=== PATIENT | female | born 1995 | race American Indian/Alaskan Native ===

== ENCOUNTER 2017-11-05 00:38 | Inpatient (IN) | payer OTHER ==
[2017-11-05] MEDS ORDERED: XYLOCAINE 2% INFILTRATI ONE (01:46)
[2017-11-05] MEDS ORDERED: MINERAL OIL PO PRN (01:46)
[2017-11-05] MEDS ORDERED: BRETHINE IVP PRN (01:46)
[2017-11-05] MEDS ORDERED: STADOL IV PRN (01:46)
[2017-11-05] MEDS ORDERED: BRETHINE SUB-Q PRN (01:46)
[2017-11-05] MEDS ORDERED: NARCAN 0.4 MG/1 ML IV PRN ×3 (01:46→21:57)
[2017-11-05] MEDS ORDERED: ePHEDrine SULFATE IV PRN ×2 (01:46→11:09)
[2017-11-05] MEDS ORDERED: PITOCin/NS 20 UNIT/1000ML DRIP 20 UNITS/1,000 ML BAG IV SCH ×3 (02:00→22:00)
[2017-11-05] MEDS ORDERED: PITOCin/NS 30 UNIT/500ML 30 UNITS/500 ML BAG IV SCH (02:00)
[2017-11-05 02:13] LABS: Hematocrit 28.9 % (30.3-42.9); Hemoglobin 9.4 gm/dl (10.1-14.3); Mean Corpuscular HGB Conc 33 % (30-34); Mean Corpuscular Volume 75 fl (79-97); Platelet Count 264 K/mm3 (140-440); Red Blood Count 3.85 M/mm3 (3.65-5.03)
[2017-11-05] MEDS: SUBLIMAZE IV PRN ×2 (02:13→06:37)
[2017-11-05 02:14] LABS: Mean Corpuscular Hemoglobin 25 pg (28-32); Red Cell Distribution Width 20.3 % (13.2-15.2)
[2017-11-05] MEDS: ZOFRAN IV PRN ×2 (02:17→16:26)
[2017-11-05] MEDS: LACTATED RINGERS 1,000 ML IV SCH ×2 (07:56→16:26)
--- NOTE | 2017-11-05 07:58 | History and Physical Report ---
History of Present Illness Date of examination: 11/05/17 Date of admission: 11/05/17 01:34 History of present illness: 22 yo LMP EDC 10/31/17 @ 40.5 weeks gestation, presented to triage with reported SROM-meconium fluid. Pitocin ordered. Patient first trimester entry into care. course uncomplicated. GBS negative. Past History Past Medical History: no pertinent history Past Surgical History: no surgical history Social history: no significant social history, single - Obstetrical History Expected Date of Delivery: 10/31/17 Actual Gestation: 40 Week(s) 5 Day(s) : 1 Medications and Allergies Allergies Allergy/AdvReac Type Severity Reaction Status Date / Time No Known Allergies Allergy Unverified 11/05/17 01:01 Home Medications Medication Instructions Recorded Confirmed Last Taken Type Ondansetron [Zofran TAB] 11/05/17 11/04/17 17:00 History Active Meds: Active Medications Butorphanol Tartrate (Stadol) 2 mg IV Q2H PRN PRN Reason: Pain , Severe (7-10) Last Admin: 11/05/17 04:16 Dose: 2 mg Ephedrine Sulfate (Ephedrine Sulfate) 10 mg IV Q2M PRN PRN Reason: Hypotension Fentanyl (Sublimaze) 100 mcg IV Q2H PRN PRN Reason: Labor Pain Last Admin: 11/05/17 06:37 Dose: 100 mcg Lactated Ringer's (Lactated Ringers) 1,000 mls @ 125 mls/hr IV DIRECT NATANAEL Oxytocin/Sodium Chloride (Pitocin/Ns 20 Unit/1000ml Drip) 20 units in 1,000 mls @ 125 mls/hr IV DIRECT NATANAEL Oxytocin/Sodium Chloride (Pitocin/Ns 30 Unit/500ml) 30 units in 500 mls @ 4 mls /hr IV TITR NATANAEL; Protocol Last Admin: 11/05/17 02:36 Dose: 4 ml/hr, 4 mls/hr Mineral Oil (Mineral Oil) 30 ml PO QHS PRN PRN Reason: Constipation Naloxone HCl (Narcan 0.4 Mg/1 Ml) 0.1 mg IV Q2MIN PRN PRN Reason: Res Rate </= 8 or 02 SAT < 92% Ondansetron HCl (Zofran) 4 mg IV Q8H PRN PRN Reason: Nausea And Vomiting Last Admin: 11/05/17 02:17 Dose: 4 mg Terbutaline Sulfate (Brethine) 0.25 mg SUB-Q ONCE PRN PRN Reason: Hyperstimulation/Hypertonicity Terbutaline Sulfate (Brethine) 0.25 mg IVP ONCE PRN PRN Reason: Hyperstimulation/Hypertonicity Review of Systems All systems: negative Genitourinary: vaginal discharge, leakage of fluid, contractions - Vital Signs Vital signs: Vital Signs Temp BP 98.6 F 129/61 11/05/17 00:50 11/05/17 00:50 Temp Pulse Resp BP Pulse Ox 98.0 F 65 18 152/81 93 11/05/17 02:29 11/05/17 07:45 11/05/17 06:37 11/05/17 07:45 11/05/17 07:08 - Obstetrical FHR: category 1 Uterine Contraction Monitor Mode: External Cervical Dilatation: 2 Cervical Effacement Percentage: 90 station: -1 Uterine Contraction Frequency (min): 2-8 Uterine Contraction Duration: 60 Uterine Contraction Pattern: Regular Uterine Tone Measurement Phase: Resting Uterine Contraction Intensity: Moderate Results Result Diagrams: 11/05/17 01:15 Abnormal lab results 11/05/17 Range/Units 01:15 WBC 14.1 H (4.5-11.0) K/mm3 Hgb 9.4 L (10.1-14.3) gm/dl Hct 28.9 L (30.3-42.9) % MCV 75 L (79-97) fl MCH 25 L (28-32) pg RDW 20.3 H (13.2-15.2) % All other labs normal. Assessment and Plan A: IUP @ 40.5 weeks gestation PPROM at term Anemia GBS negative Latent Labor Pain P: Epidural Active Pitocin
[2017-11-05] MEDS ORDERED: BICITRA ONE (09:47)
[2017-11-05] MEDS ORDERED: NARCAN 2 MG/2 ML IV PRN (11:09)
--- NOTE | 2017-11-05 11:09 | Anesthesia Consultation ---
Anesthesia Consult and Med Hx Date of service: 11/05/17 - Airway Anesthetic Teeth Evaluation: Good ROM Head & Neck: Adequate Mental/Hyoid Distance: Adequate Mallampati Class: Class II Intubation Access Assessment: Probably Good - Pre-Operative Health Status ASA Pre-Surgery Classification: ASA2 Proposed Anesthetic Plan: Epidural, Spinal - Pulmonary Hx Asthma: Yes (seasonal) - Cardiovascular System Hx Hypertension: No - Central Nervous System Hx Seizures: No Hx Psychiatric Problems: No - Endocrine Hx Renal Disease: No Hx Hypothyroidism: No Hx Hyperthyroidism: No - Hematic Hx Anemia: No Hx Sickle Cell Disease: No - Other Systems Hx Alcohol Use: No
[2017-11-05] MEDS ORDERED: fentaNYL-BUPIV 2 MCG/ML-0.125% 200 MCG/100 ML BAG EPIDURAL SCH ×2 (12:00→22:00)
--- NOTE | 2017-11-05 13:27 | Event Note ---
Date: 11/05/17 Patient doing well. Pain controlled. FSE and IUPC placed AROM of forebag /-1 continue pitocin expect vaginal delivery
[2017-11-05] MEDS ORDERED: XYLOCAINE MPF 2% ONE ×5 (14:43→20:32)
--- NOTE | 2017-11-05 19:20 | Event Note ---
Date: 11/05/17 repetitive variable decles sine 1430. Not reported until 1640. Pitocin off when RN entered room secondary to battery. Order for amnioinfusion given. Category 1 tracing currently. MVU 260. Cervix: 5/swollen/caput -1. Preop for C/ S done.
[2017-11-05] MEDS ORDERED: PEPCID IV ONE ×2 (19:30→19:49)
[2017-11-05] MEDS ORDERED: REGLAN ONE (19:30)
[2017-11-05] MEDS ORDERED: NACL 0.9% 1000 ML 1,000 ML ONE (19:30)
[2017-11-05] MEDS ORDERED: SUBLIMAZE IV ONE (19:48)
[2017-11-05] MEDS ORDERED: REGLAN IV ONE (19:49)
[2017-11-05] MEDS ORDERED: BICITRA PO ONE (19:49)
[2017-11-05] MEDS ORDERED: ANCEF/STERILE WATER 2 GM/20 ML 2 GM/20 ML SYRINGE IV NR (20:00)
[2017-11-05] MEDS ORDERED: LACTATED RINGERS 1,000 ML IV SCH (20:00)
[2017-11-05] MEDS ORDERED: ANCEF/STERILE WATER 2 GM/20 ML IV ONE (20:15)
--- NOTE | 2017-11-05 20:18 | Event Note ---
Date: 11/05/17 I was called by HARI Tariq and she noted that patient had decels variable since 1430 and she was notified at 1640. She stated cervix swollen. Discussed with patient concern for repetitive decels although after amnioinfusion resolved. Cervix 5cm and swollen. Patient has had adequate contractions with no change in cervix. Dx. Failure to progress, NRFHT. SHe was counseled about r/b/a of c-sec and patient desires to proceed.
[2017-11-05] MEDS ORDERED: WATER FOR IRRIG STERILE IR ONE (20:20)
[2017-11-05] MEDS ORDERED: NACL 0.9% IR ONE (20:20)
[2017-11-05] MEDS ORDERED: MORPHINE ONE ×2 (20:30→20:32)
[2017-11-05] MEDS ORDERED: TORADOL ONE (20:32)
[2017-11-05] MEDS ORDERED: DIPRIVAN 10 MG/ML IV ONE (20:34)
[2017-11-05] MEDS ORDERED: VERSED ONE (20:50)
--- NOTE | 2017-11-05 21:49 | Operative Report ---
Operative Report Operative Report: DATE OF OPERATION: 11/05/2017 PREOPERATIVE DIAGNOSES: 1. Intrauterine gestation at 40+5 weeks , in active labor, second stage. 2. Arrest of descent. 3. NRFHT 4. Failure to progress POSTOPERATIVE DIAGNOSES: 1. -4 TOÑA 5. Thick meconium OPERATION PERFORMED: Primary low transverse section. SURGEON:Lore Camarena MD ANESTHESIA: Epidural. COMPLICATIONS: None. ESTIMATED BLOOD LOSS: 800 mL. DRAINS: Alvarado catheter to the bladder. SPECIMENS TO PATHOLOGY: Cord blood for routine testing. OPERATIVE FINDINGS: A viable female with Apgars of 8 and 9 and birthweight of 6 pounds 10 ounces was delivered from a cephalic presentation. There was marked caput and molding present on the head. Cord pH was obtained. The cord contained 3 vessels. There was normal anterior fundal placenta. The amniotic fluid was clear. The uterus, fallopian tubes and ovaries were normal. DESCRIPTION OF OPERATION: The patient was brought to the operating suite in stable condition with epidural anesthesia on board and an indwelling catheter in place in the bladder. The patient was placed supine on the operating room table and rolled to her left side with a wedge. The abdomen was prepped and draped in standard fashion for section. After testing with forceps to assure an adequate anesthetic level, the surgery was commenced. We had counseled the patient extensively regarding the risks of the surgery including but not limited to stroke, embolus, phlebitis, pain, infection, hemorrhage, as well as injury to the infant and the internal organs such as the bowel, bladder, blood vessels, nerves, kidneys, ureters and pelvic organs. The patient was aware of the postoperative morbidity issues and recovery timeframes. The patient was aware she can form adhesions, which can result in obstruction of loop of bowel or ureter or chronic pain. She was aware that should she have hemorrhage and require blood transfusion, there was a small chance for exposure to hepatitis or HIV disease. With the scalpel, a Pfannenstiel skin incision was made. Dissection was carried down sharply through the subcutaneous tissues and fascia in a transverse plane with the scalpel, electrocautery and curved Castillo scissors. The fascia was sharply freed up superiorly and inferiorly from the underlying rectus muscles, which were bluntly and sharply divided. The peritoneum was entered carefully in a clear space with a curved hemostat. The peritoneal incision was then extended vertically with Metzenbaum scissors. A retractor and bladder blade were placed. A bladder flap was created by incising transversely through the peritoneum and vesicouterine fold and then bluntly dissecting the bladder distally. With the scalpel, a low transverse hysterotomy was commenced. The serosa and myometrium were scored with the scalpel. The uterine cavity was actually entered bluntly with a curved hemostat. The uterine incision was then extended laterally with the die machine operator's fingers. An intrauterine hand was placed and the head of the was brought up out of the pelvis into the uterine incision. With fundal pressure, he was delivered without difficulty. The nasopharynx and oropharynx were suctioned. The cord was doubly clamped and transected. The was then handed off to the nursery personnel. Apgars were good at 8 and 9. A cord pH was obtained, which subsequently revealed a normal value. Further cord blood was collected for routine testing. Intravenous Pitocin and antibiotics were administered. The placenta was manually removed. The uterine cavity was then curetted with a dry sponge and freed of the remaining membranes. The edges of the uterine incision were grasped with Foster clamps. With the massage and the Pitocin, the uterus began to firm up normally. The uterine incision was then closed in 2 layers of 0 Vicryl sutures. The first suture was placed to the endometrium and myometrium. The second suture was placed through the endopelvic fascia and also reincorporated the bladder flap peritoneum. Peritoneal lavage was then performed. The pelvis and gutters were irrigated and suctioned and cleared of all blood and clots and amniotic fluid. The uterine incision was reinspected to assure hemostasis. The uterus, tubes and ovaries were inspected and were normal. Once we were satisfied with the hemostasis, attention was turned to closure of the abdominal incision. The peritoneum, muscles and fascia were closed in layers using 0-Vicryl sutures. The subcutaneous tissue was closed with 3-0 plain sutures. The skin was closed with a subcuticular suture of 4-0 Vicryl followed by benzoin, Steri-Strips and a Telfa dressing. The patient was moved to the recovery room in stable condition with the Alvarado catheter draining clear urine. Instruments, sponge and needle counts were reported as correct. Estimated blood loss was 800 mL. There were no complications.
--- NOTE | 2017-11-05 21:50 | Procedure Note ---
OB Delivery Note - Delivery Date of Delivery: 11/05/17 Surgeon: MOO BRADLEY Estimated blood loss: other (800cc) - Section Preop diagnosis: nonreassuring FHR tracing Postop diagnosis: same section procedure: section Disposition: PACU Complications: none - Infant A at 1 minute: 8 at 5 minutes: 9 Gender: Female
[2017-11-05] MEDS ORDERED: PHENERGAN PR PRN ×2 (21:51→21:57)
[2017-11-05] MEDS ORDERED: NORCO 5/325 PO PRN (21:51)
[2017-11-05] MEDS ORDERED: ANUCORT-HC PR PRN (21:51)
[2017-11-05] MEDS ORDERED: PERCOCET 5/325 PO PRN (21:51)
[2017-11-05] MEDS ORDERED: TYLENOL PR PRN (21:51)
[2017-11-05] MEDS ORDERED: TUCKS PAD TP PRN (21:51)
[2017-11-05] MEDS ORDERED: LANSINOH TP PRN (21:51)
[2017-11-05] MEDS ORDERED: MYLICON PO PRN (21:51)
[2017-11-05] MEDS ORDERED: ZOFRAN IV PRN (21:57)
[2017-11-05] MEDS ORDERED: PHENERGAN PO PRN (21:57)
[2017-11-05] MEDS ORDERED: DILAUDID IV PRN ×2 (21:57)
[2017-11-05] MEDS ORDERED: MILK OF MAGNESIA PO PRN (22:00)
[2017-11-05] MEDS ORDERED: TORADOL IV PRN (22:00)
[2017-11-05] MEDS ORDERED: SODIUM CHLORIDE FLUSH SYRINGE 10 ML IV NR ×2 (22:00)
[2017-11-05] MEDS ORDERED: D5LR 1,000 ML IV SCH (22:00)
[2017-11-05] MEDS ORDERED: DILAUDID ONE (22:26)
[2017-11-05] MEDS: DILAUDID IV PRN ×3 (22:35→23:29)
[2017-11-05] MEDS ORDERED: SENOKOT PO PRN (23:00)
[2017-11-05] MEDS ORDERED: METHERGINE IM NR (23:23)
[2017-11-06] MEDS ORDERED: METHERGINE IM ONE (00:21)
[2017-11-06] MEDS ORDERED: BOOSTRIX IM ONE (06:00)
[2017-11-06] MEDS: METHERGINE PO SCH ×3 (06:48→22:42)
--- NOTE | 2017-11-06 08:25 | Progress Note ---
Assessment and Plan A: POD#1 s/p primary section; Anemia P: Follow up postoperative H and H. Routine postoperative care. Subjective - Subjective Date of service: 11/06/17 Principal diagnosis: s/p primary Interval history: Pt without unusual complaints. Patient reports: appetite normal, pain poorly controlled, no voiding normally ( bland in place ), no flatus, no bowel movement, no ambulating normally (SCDs in place ) [place]: doing well Objective - Vital Signs Latest vital signs: Vital Signs Temp Pulse Resp BP BP Pulse Ox 11/06/17 04:00 98.7 F 69 16 102/78 11/05/17 23:50 98.7 F 81 16 127/72 11/05/17 22:45 92 H 12 113/60 99 11/05/17 22:43 98.5 F 11/05/17 22:40 90 12 116/66 96 11/05/17 22:35 92 H 12 121/65 97 11/05/17 22:30 101 H 12 122/66 99 11/05/17 22:25 96 H 11 L 102/65 99 11/05/17 22:20 84 11 L 112/65 97 11/05/17 22:15 81 12 118/60 97 11/05/17 22:10 81 15 120/66 97 11/05/17 22:05 80 13 129/70 99 11/05/17 22:00 81 13 131/70 99 11/05/17 21:55 76 16 127/74 99 11/05/17 21:52 77 11 L 99 11/05/17 21:46 99.5 F 11/05/17 19:59 72 144/79 11/05/17 19:54 111 H 99 11/05/17 19:49 91 H 100 11/05/17 19:19 79 100 11/05/17 19:15 80 159/81 11/05/17 19:00 97.5 F L 70 20 167/77 11/05/17 18:31 73 L 11/05/17 18:25 63 100 11/05/17 18:20 62 100 11/05/17 18:15 65 100 11/05/17 18:04 69 100 11/05/17 17:28 72 140/76 11/05/17 17:18 62 133/58 11/05/17 17:16 143/80 11/05/17 17:14 89 153/81 11/05/17 17:12 99 H 151/72 11/05/17 17:10 81 145/63 11/05/17 17:09 90 162/86 11/05/17 17:06 96 H 146/96 11/05/17 17:04 83 141/88 11/05/17 13:23 76 192/91 11/05/17 13:08 68 166/77 11/05/17 12:52 53 L 145/70 11/05/17 12:50 56 L 138/81 11/05/17 12:24 59 L 134/63 11/05/17 12:22 54 L 127/57 11/05/17 12:20 51 L 130/61 11/05/17 12:18 59 L 143/71 11/05/17 12:16 53 L 142/73 11/05/17 12:14 50 L 132/55 11/05/17 12:12 57 L 134/70 11/05/17 12:10 57 L 136/68 11/05/17 12:08 65 139/70 11/05/17 12:06 63 138/66 11/05/17 12:04 75 143/69 11/05/17 12:02 63 137/66 Intake and Output 11/05/17 11/06/17 11/06/17 22:59 06:59 14:59 Intake Total 3000 Output Total 725 Balance 2275 Intake: IV 3000 Lactated Ringers 1,000 ml 1000 @ 125 mls/hr IV DIRECT NATANAEL Rx#:[id number] Output: Urine 725 Indwelling Catheter 500 Other: Total, Output Amount 500 Estimated Blood Loss 800 - Exam Breasts: Present: deferred Cardiovascular: Present: Regular rate Lungs: Present: Clear to auscultation Abdomen: Present: soft (obese ) Extremities: Present: normal Incision: Present: dressed - Labs Labs: Abnormal lab results 11/05/17 11/05/17 Range/Units 21:24 21:30 POC ABG pO2 28 L 21 L (80-105)
[2017-11-06] MEDS: TORADOL IV PRN ×2 (08:40→20:30)
[2017-11-06] MEDS ORDERED: FEOSOL PO SCH (10:00)
[2017-11-06] MEDS ORDERED: M-M-R II VACCINE SUB-Q ONE (10:00)
[2017-11-06 11:09] LABS: Hematocrit 18.7 % (30.3-42.9)
[2017-11-06] MEDS: PERCOCET 5/325 PO PRN ×2 (12:25→16:25)
[2017-11-06] MEDS: PRENATAL VITAMIN PO SCH (13:20)
[2017-11-06] MEDS: FEOSOL PO SCH ×2 (16:44→22:42)
[2017-11-06] MEDS: MORPHINE IV PRN (20:30)
[2017-11-06] MEDS: COLACE PO SCH (22:42)
[2017-11-07] MEDS: MORPHINE IV PRN (02:13)
[2017-11-07] MEDS: TORADOL IV PRN (02:13)
[2017-11-07] MEDS ORDERED: BOOSTRIX IM ONE (05:00)
[2017-11-07] MEDS: METHERGINE PO SCH ×3 (05:42→22:44)
[2017-11-07] MEDS: PERCOCET 5/325 PO PRN ×5 (05:53→22:44)
[2017-11-07] MEDS: PRENATAL VITAMIN PO SCH (09:43)
[2017-11-07] MEDS: FEOSOL PO SCH ×3 (09:43→22:44)
[2017-11-07] MEDS: COLACE PO SCH ×2 (09:43→22:44)
--- NOTE | 2017-11-07 14:28 | Progress Note ---
Assessment and Plan O: VSS AF PP H/H: 6.0/18.7 A: Stable POD #2 Anemia P: continue PP orders Subjective - Subjective Date of service: 11/07/17 Principal diagnosis: s/p primary Interval history: 22 yo LMP EDC 10/31/17 @ 40.5 weeks gestation, presented to triage with reported SROM-meconium fluid. Pitocin ordered. Patient first trimester entry into care. course uncomplicated. GBS negative. Patient reports: appetite normal, voiding normally, pain well controlled, flatus , ambulating normally : doing well Objective - Vital Signs Latest vital signs: Vital Signs Temp Pulse Resp BP BP Pulse Ox 11/07/17 08:06 98.6 F 98 H 18 117/60 99 11/07/17 01:46 98.4 F 93 H 18 124/54 11/06/17 21:13 98.3 F 107 H 20 133/63 11/06/17 16:03 99.2 F 89 20 131/69 99 Intake and Output 11/06/17 11/07/17 11/07/17 22:59 06:59 14:59 Intake Total 5582 782 5986 Output Total 750 200 Balance 999 39 6704 Intake: Oral 1120 840 Intake, Free Water 240 240 240 Output: Urine 750 200 Void 750 200 Other: Total, Intake Amount 560 240 Total, Output Amount 300 200 # Voids Void 2 1 - Exam Breasts: Present: deferred Abdomen: Present: normal appearance, soft. Absent: distention, tenderness Uterus: Present: normal, firm, fundal height below umbilicus. Absent: bogginess Extremities: Present: normal Incision: Present: normal, dry, intact, dressed
[2017-11-07] MEDS: MOTRIN PO PRN ×2 (15:00→22:48)
[2017-11-08 07:28] LABS: Eosinophils % (Auto) 1.9 % (0.0-4.3); Monocytes % (Auto) 6.9 % (0.0-7.3)
[2017-11-08 07:59] LABS: Lymphocytes % (Auto) 11.6 % (13.4-35.0)
[2017-11-08 08:00] LABS: Basophils # (Auto) 0.1 K/mm3 (0.0-0.1); Basophils % (Auto) 0.6 % (0.0-1.8); Eosinophils # (Auto) 0.3 K/mm3 (0.0-0.4); Lymphocytes # (Auto) 1.7 K/mm3 (1.2-5.4); Monocytes # (Auto) 1.1 K/mm3 (0.0-0.8)
[2017-11-08 08:01] LABS: Mean Corpuscular Volume 76 fl (79-97); Red Blood Count 2.12 M/mm3 (3.65-5.03)
[2017-11-08 08:02] LABS: Mean Corpuscular HGB Conc 33 % (30-34); Mean Corpuscular Hemoglobin 25 pg (28-32); Platelet Count 269 K/mm3 (140-440); Red Cell Distribution Width 19.7 % (13.2-15.2)
[2017-11-08 08:05] LABS: Hematocrit 16.1 % (30.3-42.9); Hemoglobin 5.3 gm/dl (10.1-14.3)
[2017-11-08] MEDS: FEOSOL PO SCH ×3 (08:30→21:00)
[2017-11-08] MEDS: COLACE PO SCH (08:30)
[2017-11-08] MEDS: PERCOCET 5/325 PO PRN ×3 (08:30→20:10)
[2017-11-08] MEDS ORDERED: NACL 0.9% 500 ML 500 ML IV ONE (10:46)
--- NOTE | 2017-11-08 10:52 | Progress Note ---
Assessment and Plan A: POD#3 s/p primary section; Severe Anemia P: Transfuse 2 units PRBCs and recheck H/H. Monitor clinically. Subjective - Subjective Date of service: 11/08/17 Principal diagnosis: s/p primary , severe anemia Interval history: Pt reports some fatigue. Again counseled of dangers of severe anemia and benefits of blood transfusion. + flatus. No bowel movement yet. Patient reports: appetite normal, voiding normally, pain well controlled, flatus , ambulating normally, no bowel movement [place]: doing well Objective - Vital Signs Latest vital signs: Vital Signs Temp Pulse Resp BP Pulse Ox 11/08/17 08:40 98.3 F 84 18 129/55 99 11/07/17 23:55 98.9 F 81 20 132/56 11/07/17 16:19 98.8 F 94 H 18 99/60 97 Intake and Output 11/07/17 11/08/17 11/08/17 22:59 06:59 14:59 Intake Total 600 600 120 Balance 600 600 120 Intake: Oral 240 120 Intake, Free Water 360 600 Other: Total, Intake Amount 240 120 Voiding Method Toilet # Voids Void 1 2 1 - Exam Breasts: Present: deferred Cardiovascular: Present: Regular rate Lungs: Present: Clear to auscultation Abdomen: Present: soft (obesity ) Uterus: Present: fundal height below umbilicus Extremities: Present: normal Incision: Present: intact - Labs Labs: Abnormal lab results 11/08/17 Range/Units 06:18 WBC 14.7 H (4.5-11.0) K/mm3 RBC 2.12 L (3.65-5.03) M/mm3 Hgb 5.3 L* (10.1-14.3) gm/dl Hct 16.1 L* (30.3-42.9) % MCV 76 L (79-97) fl MCH 25 L (28-32) pg RDW 19.7 H (13.2-15.2) % Lymph % (Auto) 11.6 L (13.4-35.0) % [place] # 1.1 H (0.0-0.8) K/mm3 Seg Neutrophils % 78.5 H (40.0-70.0) % Seg Neutrophils # 11.5 H (1.8-7.7) K/mm3
[2017-11-08] MEDS ORDERED: MILK OF MAGNESIA PO SCH (11:00)
[2017-11-08] MEDS: PRENATAL VITAMIN PO SCH (14:10)
[2017-11-08 21:38] LABS: Hematocrit 20.7 % (30.3-42.9); Hemoglobin 6.9 gm/dl (10.1-14.3)
[2017-11-09] MEDS: PERCOCET 5/325 PO PRN ×2 (00:13→04:45)
[2017-11-09] MEDS: COLACE PO SCH ×2 (00:13→10:03)
--- NOTE | 2017-11-09 08:51 | Progress Note ---
Assessment and Plan A/P POD3 s/p Primary csec and severe anemia ( s/p 2 u transfusion) patient is doing well and feels better after transfusion VSS f/u in 2 weeks for incision check bonding with baby with breast feeding Subjective - Subjective Date of service: 11/09/17 Principal diagnosis: s/p primary , severe anemia Patient reports: appetite normal, voiding normally, pain well controlled, flatus , ambulating normally : doing well, nursing well Objective - Vital Signs Latest vital signs: Vital Signs Temp Pulse Resp BP BP Pulse Ox 11/09/17 00:13 18 11/09/17 00:00 98.7 F 63 16 114/64 11/08/17 17:10 98.9 F 96 H 20 119/60 11/08/17 16:40 98.6 F 93 H 18 138/64 11/08/17 16:39 98.8 F 84 18 139/71 98 11/08/17 16:10 99 F 92 H 18 142/82 11/08/17 15:55 98.7 F 81 18 128/59 11/08/17 15:42 98.5 F 82 18 123/60 11/08/17 15:40 98.2 F 80 18 135/61 11/08/17 15:00 98.7 F 78 18 131/67 11/08/17 14:30 98.9 F 83 18 130/63 11/08/17 13:59 99.1 F 86 18 130/63 11/08/17 13:45 98.8 F 91 H 18 145/60 Intake and Output 11/08/17 11/09/17 11/09/17 23:59 07:59 15:59 Intake Total 610 300 Balance 610 300 Intake: Oral 240 Intake, Free Water 120 300 Blood Product 250 Leukoreduced Red Blood 250 Cells Unit [id number] Other: Total, Intake Amount 240 # Voids Void 1 - Exam Breasts: Present: normal Cardiovascular: Present: Regular rate, Normal S1 Lungs: Present: Clear to auscultation, Normal air movement Abdomen: Present: normal appearance, soft, normal bowel sounds. Absent: distention, tenderness, guarding Vulva: both: normal Uterus: Present: normal, firm, fundal height below umbilicus. Absent: bogginess , tenderness Extremities: Present: normal Deep Tendon Reflex Grade: Normal +2 Incision: Present: normal, dry, intact - Labs Labs: Abnormal lab results 11/08/17 11/08/17 Range/Units 11:21 21:17 Hgb 6.9 L (10.1-14.3) gm/dl Hct 20.7 L (30.3-42.9) % Crossmatch See Detail
--- NOTE | 2017-11-09 08:54 | Discharge Summary ---
Providers - Providers Date of Admission: 11/05/17 01:34 Date of discharge: 11/09/17 Attending physician: DIANNE SMITH Primary care physician: DIANNE SMITH Hospitalization Delivery: Procedure: primary low transverse Episiotomy: none Laceration: none Incision: normal, dry, intact Other procedures: none complications: transfusion Discharge diagnosis: IUP at term delivered [place] baby: female Hospital course: Patient sustained a Primary csec secondary to NRFHT and failure to dilate. She had a 2u transfusion secondary to severe anemia. f/u in 1 week Condition at discharge: Good Disposition: DC-30 STILL A PATIENT Plan - Discharge Medications Prescriptions: Docusate Sodium [Colace] 100 mg PO BID PRN #60 capsule PRN Reason: Constipation Ferrous Sulfate [Feosol 325 MG tab] 325 mg PO TID #90 tablet Ibuprofen [Motrin] 800 mg PO Q8HR PRN #30 tablet PRN Reason: Pain, Moderate (4-6) oxyCODONE /ACETAMINOPHEN [Percocet 5/325] 1 tab PO Q6HR PRN #40 tablet PRN Reason: Pain - Provider Discharge Summary Activity: routine, no sex for 6 weeks Diet: routine Instructions: routine Additional instructions: [] Smoking cessation referral if applicable(refer to patient education folder for contact #) [] Refer to [facility] Booklet Call your doctor immediately for: * Fever > 100.5 * Heavy vaginal bleeding ( >1 pad per hour) * Severe persistent headache * Shortness of breath * Reddened, hot, painful area to leg or breast * Drainage or odor from incision. * Keep incision clean and dry at all times and follow doctor's instructions regarding bathing/showering - Follow up plan Follow up: DIANNE SMITH MD [Primary Care Provider] - 7 Days
[2017-11-09 09:22] VITALS: BP 121/67
[2017-11-09] MEDS: FEOSOL PO SCH (10:03)
[2017-11-09] MEDS: PRENATAL VITAMIN PO SCH (10:03)
== END 2017-11-09 11:05 | disposition home or self-care (01) | DRG 765 ==
LOC: TRG 00:38 → LD 01:34 → TRG 01:34 → APU 23:29 → OB 23:47
PROVIDERS: ADMIT Obstetrics & Gynecology; ATTEND Obstetrics & Gynecology
PROC: 10D00Z1 Extraction of Products of Conception, Low, Open Approach (ICD-10-PCS; principal; 2017-11-05)
PROC: 3E0234Z Introduction of Serum, Toxoid and Vaccine into Muscle, Percutaneous Approach (ICD-10-PCS; 2017-11-06)
PROC: 10907ZC Drainage of Amniotic Fluid, Therapeutic from Products of Conception, Via Natural or Artificial Opening (ICD-10-PCS; 2017-11-06)
PROC: 10H07YZ Insertion of Other Device into Products of Conception, Via Natural or Artificial Opening (ICD-10-PCS; 2017-11-06)
PROC: 30233N1 Transfusion of Nonautologous Red Blood Cells into Peripheral Vein, Percutaneous Approach (ICD-10-PCS; 2017-11-08)
DX: O42.92 Full-term premature rupture of membranes, unspecified as to length of time between rupture and onset of labor (principal); D62 Acute posthemorrhagic anemia; O76 Abnormality in fetal heart rate and rhythm complicating labor and delivery; O77.0 Labor and delivery complicated by meconium in amniotic fluid; O99.02 Anemia complicating childbirth; O62.8 Other abnormalities of forces of labor; O99.52 Diseases of the respiratory system complicating childbirth; J45.909 Unspecified asthma, uncomplicated; Z23 Encounter for immunization; Z3A.40 40 weeks gestation of pregnancy; Z37.0 Single live birth
CPT/HCPCS: 36415; 82803; 85014; 85018; 85025; 85027; 86592; 86850; 86900; 86901; 86920; 88307; 90471; 90715; A6250; C9250; J0595; J0690; J1170; J1885; J2210; J2250; J2270; J2405; J2590; J2704; J2765; J3010; J7030; J7040; J7120; P9016